=== PATIENT | female | born 1980 ===

== ENCOUNTER 2022-11-30 10:49 | Day surgery (SDC) | payer BC ==
[~2022-11-30] VITALS: Ht 167.6 cm; Wt 64.9 kg
[2022-11-30] MEDS ORDERED: MAGCHL64ER (11:08)
== END 2022-11-30 14:03 | disposition home or self-care (01) ==
LOC: ORSCSDS 10:49
PROVIDERS: Internal Medicine Gastroenterology
PROC: 0DBL8ZX Excision of Transverse Colon, Via Natural or Artificial Opening Endoscopic, Diagnostic (ICD-10-PCS; principal; 2022-11-30 12:00)
PROC: 0DBM8ZX Excision of Descending Colon, Via Natural or Artificial Opening Endoscopic, Diagnostic (ICD-10-PCS; principal; 2022-11-30 12:00)
PROC: 0DBN8ZX Excision of Sigmoid Colon, Via Natural or Artificial Opening Endoscopic, Diagnostic (ICD-10-PCS; principal; 2022-11-30 12:00)
DX: Z12.11 Encounter for screening for malignant neoplasm of colon (principal); D12.3 Benign neoplasm of transverse colon; K63.5 Polyp of colon; K63.89 Other specified diseases of intestine; Z83.71 Family history of colonic polyps
CPT/HCPCS: 88305; J2250; J2704; J7120

== ENCOUNTER → 2023-03-19 | Outpatient (CLI) | payer BC ==
[~2023-03-19] MED LIST: MAGCHL64ER
== END ==
LOC: PLD 14:47 → LAB 14:47 → LAB SHORT 14:47
DX: D48.5 Neoplasm of uncertain behavior of skin (principal)
CPT/HCPCS: 88305